=== PATIENT | male | born 1965 | race Caucasian/White ===

== ENCOUNTER → 2022-09-11 08:56 | Outpatient (CLI) | payer OTHER, SELFPAY ==
[2022-09-11 10:53] LABS: Add Manual Diff / Slide Review NO; Basophils Absolute Auto 0 /uL (0-100); Basophils Percent Auto 0.5 % (0-2); Eosinophils Absolute Auto 100 /uL (0-450); Hematocrit 44.3 % (36-46); Hemoglobin 15.4 g/dL (12.0-16.0); Lymphocytes Absolute Auto 3300 /uL (1100-4500); Lymphocytes Percent Auto 35.7 % (25-40); Mean Corpuscular HGB Conc 34.7 % (30-36); Mean Corpuscular Hemoglobin 28.4 PG (26-34); Monocytes Absolute Auto 600 /uL (0-900); Neutrophils Absolute Auto 5100 /uL (1500-7000); Neutrophils Percent Auto 55.8 % (50-75); Platelet Count 304 X10^3/uL (150-400); Red Blood Cell Count 5.41 X10^6/uL (4.0-5.2); Red Cell Distribution Width 13.3 % (11.6-14.8); White Blood Cell Count 9.2 X10^3/uL (4.5-11.0)
[2022-09-11 11:18] LABS: Alanine Aminotransferase 47 IU/L (<35); Albumin 4.3 g/dL (3.5-5.0); Albumin Globulin Ratio 1.3 (1.0-2.8); Alkaline Phosphatase 110 U/L (38-126); Aspartate Aminotransferase 38 IU/L (14-36); BUN Creatinine Ratio 13.3 (6-22); Bilirubin Total 0.7 mg/dL (0.2-1.3); Blood Urea Nitrogen 14 mg/dL (7-17); Calcium 9.2 mg/dL (8.4-10.2); Carbon Dioxide 30 mmol/L (22-32); Chloride 100 mmol/L (98-107); Cholesterol 258 mg/dL (140-199); Estimated Glomerular Filt Rate > 60 mL/min (>60); Globulin 3.2 g/dL (1.7-4.1); Glucose 86 mg/dL (70-100); HDL Cholesterol 38 mg/dL (40-60); HEMOLYSIS < 15 (0-50); LDL Cholesterol Calculated 154 mg/dL (<100); Sodium 139 mmol/L (137-145); Total Protein 7.5 g/dL (6.3-8.2); Triglycerides 328 mg/dL (35-150)
[2022-09-11 11:51] LABS: Prostate Specific Antigen 1.66 ng/mL
== END ==
PROVIDERS: PCP Family Medicine; Referring Provider Family Medicine; Visit Provider Family Medicine
DX: Z13.29 Encounter for screening for other suspected endocrine disorder (principal); K42.9 Umbilical hernia without obstruction or gangrene; Z13.0 Encounter for screening for diseases of the blood and blood-forming organs and certain disorders involving the immune mechanism; R03.0 Elevated blood-pressure reading, without diagnosis of hypertension; Z13.220 Encounter for screening for lipoid disorders; Z13.21 Encounter for screening for nutritional disorder; Z12.5 Encounter for screening for malignant neoplasm of prostate
CPT/HCPCS: 36415; 80053; 80061; 82306; 84153; 84443; 85025

== ENCOUNTER → 2022-09-17 07:05 | Outpatient (CLI) | payer OTHER, SELFPAY ==
--- NOTE | 2022-09-17 07:06 | DI.ECHO.S_ITS ---
[facility] +---------+ : : [address] : : : : [id number] : : : : Phone: [phone]---------+ Echocardiogram Report + + :Name: SUZANNE MICHAUD Study Date: 09/17/2022 Height: 70 in : :[facility] ReadingLocation: Weight: 210 lb : : Gender: Female BSA: 2.1 m2 : :: 1965 Age: 57 yrs BP: 168/104 mmHg: :Reason For Study: ELEVATED BLOOD PRESSURE READING : :Ordering Physician: BEVERLY, : :GARCIA MALDONADO Performed By: Yoly Main : :Referring: GARCIA PAUL : + + Interpretation Summary Mild concentric left ventricular hypertrophy with ejection fraction 60-65%. Diastolic parameters suggest a relaxation abnormality of the left ventricle, consistent with probable normal filling pressures. No valvular abnormality. The ascending aorta is at the upper limits of normal in size. Procedure: A two-dimensional transthoracic echocardiogram with color flow and Doppler was performed. The study quality was technically adequate. There is no prior echocardiogram noted for this patient. The patient was in sinus rhythm with heart rates between 54-63 bpm during the exam. Left Ventricle: The left ventricle is normal in size. There is mild concentric left ventricular hypertrophy. The ejection fraction is estimated to be 60-65%. There are no focal wall motion abnormalities. Diastolic parameters suggest a relaxation abnormality of the left ventricle, consistent with probable normal filling pressures. Right Ventricle: The right ventricle is normal in size, thickness and function. Atria: The left atrial size is normal. Right atrial size is normal. There is no Doppler evidence for an interatrial shunt. Mitral Valve: The mitral valve leaflets appear mildly thickened, but open well. There is trace mitral regurgitation. Aortic Valve: The aortic valve is trileaflet. The aortic valve opens well. There is no aortic valve stenosis. No aortic regurgitation is present. Tricuspid Valve: The tricuspid valve is normal in structure and function. There is trace tricuspid regurgitation. Pulmonic Valve: The pulmonic valve leaflets are thin and pliable; valve motion is normal. There is trace pulmonic regurgitation. Great Vessels: The aortic root is normal size. The ascending aorta is at the upper limits of normal in size. The IVC is of normal diameter and collapses greater than 50% with a sniff. This suggests a low right atrial pressure of 3 mm Hg. Pericardium/ Pleura There is no pericardial effusion. There is no pleural effusion. MMode/2D Measurements & Calculations LVIDd: 5.3 cm LVOT diam: 2.3 cm LVIDs: 3.6 cm Ao root diam: 3.8 cm FS: 31.6 % asc Aorta Diam: 3.8 cm IVSd: 1.2 cm LVPWd: 1.3 cm LV max. diameter/BSA (cm/m^2): 2.5 LV sys. diameter/BSA (cm/m^2): 1.7 LA A2 area: 19.7 cm2 RA long axis: 5.3 cm LA A4 area: 14.6 cm2 RA area: 17.8 cm2 LA length (vol): 4.6 cm RA vol: 50.2 ml LA vol: 52.8 ml RA : 23.6 ml/m2 LA vol index: 24.8 ml/m2 IVC diam: 1.3 cm RVD1 (basal): 4.0 cm RVD2 (mid): 3.7 cm TAPSE: 2.1 cm Doppler Measurements & Calculations Ao V2 max: 117.0 cm/sec LVOT Max Mina: 97.0 cm/sec Ao V2 mean: 89.7 cm/sec LV V1 max P.8 mmHg Ao max P.5 mmHg LV V1 VTI: 22.1 cm Ao mean P.5 mmHg HEATH(I,D): 3.3 cm2 Ao V2 VTI: 27.6 cm HEATH(V,D): 3.4 cm2 sev ratio: 0.80 HEATH indexed to BSA (cm^2/m^2): 1.6 MV E max mina: 52.7 cm/sec PA V2 max: 96.3 cm/sec MV A max mina: 71.4 cm/sec PA V2 mean: 61.1 cm/sec MV E/A: 0.74 PA mean P.7 mmHg Med Peak E' Mina: 4.2 cm/sec PA pr(Accel): 32.8 mmHg E/E' med: 12.5 Lat Peak E' Mina: 4.3 cm/sec E/E' lat: 12.4 E/e' average: 12.5 MV dec time: 0.27 sec SV(LVOT): 91.6 ml Electronically signed by: Nakia Fall on Reading Physician:09/17/2022 07:30 PM
--- NOTE | 2022-09-17 07:06 | DI.US.S_ITS ---
PROCEDURE: US ABDOMEN LIMITED INDICATIONS: ELEVATED BLOOD PRESSURE READING; UMBILICAL HERNIA TECHNIQUE: Real-time focused scanning was performed of the abdomen, with image documentation. COMPARISON: None. FINDINGS: Bowel containing umbilical hernia. No evidence of incarceration. Rectus defect measures 3.8 mm. There appears to be partial reduction. IMPRESSION: Partially reducible bowel containing umbilical hernia. Dictated by: Liberty Stephenson M.D. on 09/17/2022 at 21:02 Approved by: Liberty Stephenson M.D. on 09/17/2022 at 21:03
== END ==
PROVIDERS: PCP Family Medicine; Referring Provider Family Medicine; Visit Provider Family Medicine
DX: R03.0 Elevated blood-pressure reading, without diagnosis of hypertension (principal); K42.0 Umbilical hernia with obstruction, without gangrene; Z82.49 Family history of ischemic heart disease and other diseases of the circulatory system
CPT/HCPCS: 76705; 93306

== ENCOUNTER 2022-10-05 10:58 | Day surgery (SDC) | payer OTHER, SELFPAY ==
[2022-10-01 13:47] VITALS: BMI 30.7
[2022-10-05] VITALS (12 sets, daily range): BP systolic 89–180; BP diastolic 60–102; PULSE 61–75; RESP 12–15; TEMP 36.1–37.2; O2SAT 95–100; BMI 30.1
[2022-10-05] MEDS: LACTATED RINGERS 1,000 ML 42 ML IV ×2 (11:46→13:39)
--- NOTE | 2022-10-05 12:26 | PM.PREOP ---
Pre-operative Note Interval Note History & Physical reviewed/Exam performed by Physician: Yes Changes to H&P: No
[2022-10-05] MEDS: CEFAZOLIN 2 GM/100 ML PREMIX 100 ML IV (12:40)
--- NOTE | 2022-10-05 13:05 | SUR.OPER ---
Supine on padded OR bed, head on pillow, arms secured on padded arm boards at <90 degrees abduction, legs uncrossed, safety belt at thigh, tape over blanket over lower legs. Heels on gel pad.
[2022-10-05] MEDS: BUPIVACAINE 0.25% (PF) VIAL 20 ML INJ (13:19)
[2022-10-05] MEDS: OXYCODONE/ACETAMINOPHEN 5/325 TABLET 1 TAB PO ×2 (14:47→15:40)
--- NOTE | 2022-10-05 14:56 | P.OP_ITS ---
Operative Date/Time/Diagnoses Date of procedure: 10/05/22 Time of procedure: 14:56 Pre-op diagnosis: Ventral hernia Post-op diagnosis: same Procedure & Clinicians Procedure: Open repair of ventral hernia 4 cm Same procedure as scheduled: Yes Indications: 57-year-old man with a enlarging symptomatic ventral hernia. Surgeon: Jed Martin Click Yes if Unassisted: Yes Anesthesia Type: General Operative Notes Findings: Large volume of viable omentum within the hernia sac. 4 cm fascial defect Specimen(s): none sent Estimated Blood Loss (mL): 50 Procedure in detail: Patient was brought to the operating room placed supine on the table. Bilateral lower extremity compression devices were applied. General anesthesia was induced and they were intubated with an endotracheal tube. They received 2 g of Ancef prior to skin incision. They were prepped and draped in sterile fashion. A time-out was performed. A supra umbilical midline incision was made. The subcutaneous tissues were divided. The hernia sac was encountered just below the surface of the skin and it was carefully opened using sharp dissection. It contained a large volume viable omentum but it could not be reduced through the fascial defect. The omentum was therefore ligated with silk suture divided between clamps. At this point the remainder of the omentum was reducible. The fascial edges were trimmed back to healthy tissue. The remainder of the hernia sac was freed from the underside of the fascia in order to accommodate the mesh. Hemostasis was checked. The fascia defect was 4 cm in maximal diameter. A Bard Ventralex ST hernia patch 8 cm was inserted beneath the fascia defect with the non adherent side faced down. The mesh was anchored in multiple locations using Ethibond suture to the fascia and the fascial defect was closed over the mesh. There was a large amount of excess attenuated skin and this was trimmed back. The subcutaneous tissue was reapproximated with 3-0 Vicryl and the skin closed with a 4-0 Vicryl followed by the application of Dermabond and Steri- Strips. Sponge instrument count at the end of the operation was correct. Patient tolerated procedure well was extubated and transferred to postoperative care unit in stable condition. Complications: none Post-operative Condition: stable Disposition: same day surgery
--- NOTE | 2022-10-05 15:49 | SUR.PHASEII ---
1500 - Received report from [employer] PROFESSOR and assumed care of pt. Attempted to rains HOB slightly and pt c/o dizziness. IVF's opened up. VSS.
--- NOTE | 2022-10-05 15:54 | SUR.PHASEII ---
1330. Requesting another percocet. Drinking gingerale.
--- NOTE | 2022-10-05 16:40 | SUR.PHASEII ---
1615. Attempted to sit patient on side of bed. Pt became diaphoretic and dizzy. BP 88/60 HR 62 o2 sat 97. I just want to lay down.. Second LR hung and pt put into slight trendelenburg
[2022-10-05] MEDS: LACTATED RINGERS 1,000 ML 200 ML IV (16:46)
[2022-10-05] MEDS: ONDANSETRON 4 MG/2 ML INJ IV (16:49)
--- NOTE | 2022-10-05 17:45 | SUR.PHASEII ---
1735 Pt up to BR, voided. Steady on feet.
== END 2022-10-05 17:42 | disposition home or self-care (01) ==
PROVIDERS: PCP Family Medicine; Referring Provider Surgery; Visit Provider Surgery
PROC: (CPT 49594; principal; 2022-10-05 12:30)
DX: K43.6 Other and unspecified ventral hernia with obstruction, without gangrene (principal)
CPT/HCPCS: 49594; J0690; J1100; J1885; J2250; J2405; J2704; J3010; J3490